=== PATIENT | female | born 1980 | race Two or more races ===

== ENCOUNTER 2025-01-14 23:48 | Inpatient (IN) | payer OTHER ==
[~2025-01-14] VITALS: Ht 154.9 cm; Wt 65.0 kg
--- NOTE | 2025-01-15 00:25 | ED.PDOC ---
SOB-HPI HPI Comments This is a 44-year-old female, with a Hx of CKD and HTN, who presents to the ED with a chief complaint of SOB with associated swelling of face and swelling to bilateral lower extremities as of today. Patient reports attending dialysis regularly, Sunday, , and Sunday, for her HTN and Kidney Disease. Patient states she was told by her dialysis physician that the swelling is caused by her body maintaining fluids. Patient has no further complaints at this time and otherwise denies further associated symptoms of abdominal pain, chest pain, palpitations, cough, hemoptysis, fever, or chills. REVIEW OF SYSTEMS: General: No fever, no chills, or fatigue HEENT: No sore throat, no earache, no congestion, no neck pain. Positive swelling of face Cardiac: No chest pain. No palpitations. Lungs: Positive shortness of breath, no cough. GI: No nausea, no vomiting, no diarrhea, no constipation, no abdominal pain : No dysuria, frequency, or urgency. No hematuria. Musculoskeletal: No joint pain , no joint swelling, positive bilateral lower extremity edema Skin: No rash, no itching. Neuro: No headache, no dizziness, no weakness Physical EXAM: General: Awake, alert and oriented. No acute distress. Skin: Skin in warm, dry and intact. Appropriate color for ethnicity. HEENT: The head is normocephalic and atraumatic. Conjunctivae are clear without exudates or hemorrhage. Sclera is non-icteric. EOM are intact. No signs of nystagmus. Eyelids are normal in appearance without swelling or lesions. Oral mucosa is pink and moist Neck: Positive JVD. The neck is supple with normal range of motion. Cardiac: Heart rate and rhythm are normal. No murmurs, gallops, or rubs are auscultated. Respiratory: No signs of respiratory distress. Positive rales bilaterally Abdominal: Abdomen is soft, non-tender without distention. Bowel sounds are present and normoactive in all four quadrants. Extremities: Soft non-tender, 1+ pitting edema of the lower extremities bilaterally. Neurological: The patient is awake, alert and oriented to person, place, and ti me with normal speech. Speech is clear. There is no facial asymmetry. Psychiatric: Appropriate mood and affect. Good judgement and insight Chief Complaint: Shortness of Breath Time Seen by MD: 00:10 Reviewed notes: Medications, Allergies Information Source: Patient Mode of Arrival: Ambulatory Severity: Moderate Timing: Hours Duration: Since onset History of: Other (CKD and HTN) Prehospital treatment: None Associated Signs and Symptoms: None Past Medical History PAST MEDICAL HISTORY: Anemia, DM, HTN Past Medical History (Other): CKD Surgical History: Denies all surgeries RN LICENSED PRACTICAL History: No Pertinent RN LICENSED PRACTICAL History Family History Family History: Reviewed,noncontributory to illness, No family hx of Cancer, No family hx of DM, No family hx of Heart katina, No family hx of HTN, No family hx ofKidney katina, No family hx of Liver katina, No family hx of Lung katina, No family hx of Stroke Social History Smoker: Non-Smoker Alcohol: Denies ETOH Use Drugs: Denies Drug Use Lives In: Home Was a procedure done? Was a procedure done?: No Differential Dx Differential Diagnosis: Anxiety, Asthma, Bronchitis, Sinusitis, Allergic Rhini tis, Pharyngitis X-Ray, Labs, Meds, VS Vital Signs Date Time Temp Pulse Resp B/P (MAP) Pulse Ox O2 Delivery O2 Flow Rate FiO2 01/14/25 23:48 97.7 105 17 157/81 95 97.7 Lab Test 01/15/25 00:30 Range/Units White Blood Count 7.1 4.4-10.8 10^3/uL Red Blood Count 3.72 L 4.0-5.20 10^6/uL Hemoglobin 11.5 L 12.2-16.2 g/dL Hematocrit 35.3 L 36.0-46.0 % Mean Corpuscular Volume 94.8 80.0-100.0 fL Mean Corpuscular Hemoglobin 30.9 28.0-32.0 pg Mean Corpuscular Hemoglobin Concent 32.6 32.0-36.0 g/dL Red Cell Distribution Width 16.4 H 11.8-14.3 % Platelet Count 180 140-450 10^3/uL Mean Platelet Volume 8.1 6.9-10.8 fL Neutrophils (%) (Auto) 75.9 37.0-80.0 % Lymphocytes (%) (Auto) 9.4 L 10.0-50.0 % Monocytes (%) (Auto) 10.9 0.0-12.0 % Eosinophils (%) (Auto) 2.7 0.0-7.0 % Basophils (%) (Auto) 1.1 0.0-2.0 % Neutrophils # (Auto) 5.4 1.6-8.6 10 ^3/uL Lymphocytes # (Auto) 0.7 0.4-5.4 10 ^3/uL Monocytes # (Auto) 0.8 0-1.3 10 ^3/uL Eosinophils # (Auto) 0.2 0-0.8 10 ^3/uL Basophils # (Auto) 0.1 0-0.2 10 ^3/uL Nucleated Red Blood Cells 0.0 % Sodium Level 138 136-145 mmol/L Potassium Level 4.3 3.5-5.1 mmol/L Chloride Level 98 98-107 mmol/L Carbon Dioxide Level 26 20-31 mmol/L Anion Gap 14 5-15 Blood Urea Nitrogen 36 H 9-23 mg/dL Creatinine 7.16 H 0.550-1.02 mg/dL Glomerular Filtration Rate Calc 7 >90 mL/min BUN/Creatinine Ratio 5.0 L 10.0-20.0 Serum Glucose 116 H 74-106 mg/dL Calcium Level 7.5 L 8.7-10.4 mg/dL Troponin I High Sensitivity 26 </=34 ng/L Parathyroid Hormone (Intact) 1607.4 H 18.4-80.1 pg/mL [place] [id number] Ph: [phone] DIAGNOSTIC IMAGING Diagnostic Imaging Report : [id number] Signed PATIENT: YENNI SLULIVAN ACCT: [id number] UNIT: [id number] : 1980 LOC: ER ROOM / BED: / AGE / SEX: 44 / F ADM STATUS: REG ER SERVICE 0014 ORDERING PHYSICIAN: ALLY IRENE MD PROCEDURE(s): CXR2 - CHEST TWO VIEWS ROUTINE REASON: sob, jvd, LE edema ORDER NUMBER(s): [id number], ACCESSION NUMBER(s): [id number] CHEST RADIOGRAPH Indication: sob, jvd, LE edema Technique: Frontal and lateral view of the chest was obtained Comparison: None FINDINGS: Lines and Tubes: None Lungs: Clear Pleura: Small right pleural effusion. No pneumothorax. Cardiomediastinal contours: Cardiomegaly. Atherosclerotic vascular calcifications. Bones: Unremarkable IMPRESSION: 1. Cardiomegaly and small right pleural effusion. Images Reviewed?: Images reviewed and evaluated by me Time of 1ST Reevaluation: 00:39 Reevaluation 1ST: Unchanged Patient Education/Counseling: Diagnosis, Treatment, Need For Follow Up Family Education/Counseling: No Family Present Medical Screening: No EMC Exist At This Time SEPSIS Sepsis Screen Date sepsis recognized/suspect: Jan 14, 2025 Time Sepsis recognized/suspect: 2347 Recent Procedure: No On Antibiotic Therapy: No Respiratory Rate >20: No Heart Rate >90: No Temp<36 C (96.8 F) or >38.3 C: No SBP <90 or MAP <65 mmHG: No New Acute Mental Status Change: No Is the patient on CPAP, BIPAP,: No Physician Orders Chest Two Views Routine (01/15/25 00:14) Electrocardigram (01/15/25 00:14) Vital Signs Date Time Temp Pulse Resp B/P (MAP) Pulse Ox O2 Delivery O2 Flow Rate FiO2 01/14/25 23:48 97.7 105 17 157/81 95 97.7 Laboratory Tests Test 01/15/25 00:30 White Blood Count 7.1 10^3/uL (4.4-10.8) Departure 1 Departure Time of Disposition: 01:33 Impression: Primary Impression: Pleural effusion, right Additional Impressions: Shortness of breath Hypertensive CKD, ESRD on dialysis Disposition: ADMITTED INPATIENT Condition: Stable Comments Patient admitted to hospitalist service for further treatment, evaluation and monitoring. Critical Care Note Critical Care Time?: No Stability Stability form required: No Heart Score Heart Score: Heart Score Response (Comments) Value History N/A 0 EKG N/A 0 Age N/A 0 Risk Factors N/A 0 Troponin N/A 0 Total 0 I personally scribed for ALLY IRENE MD ([employer]) on 01/15/25 at 00:24. Electronically submitted by Viv Roland ([employer]). I personally scribed for ALLY IRENE MD ([email or web address]) on 01/15/25 at 00:57. El ectronically submitted by Viv Roland ([employer]). ALLY IRENE MD Jan 15, 2025 00:24
[2025-01-15 00:45] LABS: Hematocrit 35.3 % (36.0-46.0); Hemoglobin 11.5 g/dL (12.2-16.2); Mean Corpuscular Hemoglobin 30.9 pg (28.0-32.0); Mean Corpuscular Volume 94.8 fL (80.0-100.0); Nucleated Red Blood Cells % 0.0 %
[2025-01-15 00:48] LABS: Chloride 98 mmol/L (98-107); Potassium 4.3 mmol/L (3.5-5.1); Sodium 138 mmol/L (136-145)
[2025-01-15 00:49] LABS: Anion Gap 14 (5-15); Carbon Dioxide 26 mmol/L (20-31)
--- NOTE | 2025-01-15 00:52 | DVH ---
CHEST RADIOGRAPH Indication: sob, jvd, LE edema Technique: Frontal and lateral view of the chest was obtained Comparison: None FINDINGS: Lines and Tubes: None Lungs: Clear Pleura: Small right pleural effusion. No pneumothorax. Cardiomediastinal contours: Cardiomegaly. Atherosclerotic vascular calcifications. Bones: Unremarkable IMPRESSION: 1. Cardiomegaly and small right pleural effusion.
[2025-01-15 00:53] LABS: Calcium 7.5 mg/dL (8.7-10.4)
[2025-01-15 00:54] LABS: BUN/Creatinine Ratio 5.0 (10.0-20.0)
[2025-01-15 00:58] LABS: Blood Urea Nitrogen 36 mg/dL (9-23); Glucose 116 mg/dL (74-106)
--- NOTE | 2025-01-15 04:47 | DVHHPRES ---
History of Present Illness Resident Creating Document: STANLEY OROZCO RESIDENT History of Present Illness History of Present Illness (HPI): Callie Mijares is a 44-year-old female with a known past medical history of chronic kidney disease (CKD) and hypertension. She presents with complaints of facial and pedal swelling that have persisted for approximately six months. In addition to the swelling, she reports experiencing shortness of breath and abdominal bloating during the same timeframe. The patient is currently undergoing hemodialysis three times a weekspecifically on Tuesdays, , and Saturdaysthrough the [facility]. She mentions that her poll watcher has recommended she follow up with her primary care provider (PCP) regarding a potential parathyroidectomy. Past Medical History (PMH): CKD, hypertension Past Surgical History (PSH): Denies any past surgical history Family history (FH): Family history of CKD in father EtOH: Denies alcohol use Smoking /Vaping: Denies smoking Recreational Drugs: Denies recreational drug use Residence: Lives with family Home Medications: Amlodipine, pantoprazole, calcium acetate, ferric citrate, cinacalcet, metoclopramide Allergies: No known allergies PCP: Dr. Draper Specialist relevant to admission: Nephrology, [facility] Review of Systems Review of Systems General: patient denies fever, fatigue, weakenss, sweating, any recent changes in appetite and weight HEENT: Complains of swelling in the face Cardiovascular: Denies chest pain, palpitations, dyspnea on exertion, orthopnea, or claudication. Respiratory: No cough, and wheezing. Gastrointestinal: Complains of abdominal bloating. Genitourinary: No dysuria, hematuria, discharge, frequency, urgency, nocturia, incontinence, and urinary retention. Endocrine: No heat or cold intolerance, polydipsia, polyuria, and polyphagia. Neurological: No dizziness, extremity weakness and numbness, tremors, gait disturbance, seizures, and memory impairment. Psychiatric: Denies depression, anxiety,or insomnia. Musculoskeletal: Complains of bilateral foot swelling. Skin: No rashes, itching, skin lesion, changes in hair, nail, skin texture and breast. Hematologic/Lymphatic: Denies easy bruising, bleeding tendencies, or lymph node enlargement. Allergies: Coded Allergies: NO KNOWN ALLERGIES (Unverified , 01/15/25) Medications Current Medications Medications Dose Ordered Sig/Willis Route Start Time Stop Time Status Last Admin Dose Admin Calcium Acetate 667 mg DAILY PO 01/15/25 10:00 Pantoprazole Sodium 20 mg DAILY PO 01/15/25 10:00 Exam Vital Signs Vital Signs Date Time Temp Pulse Resp B/P (MAP) Pulse Ox O2 Delivery O2 Flow Rate FiO2 01/14/25 23:48 97.7 105 17 157/81 95 97.7 Exam General Appearance: Alert, Oriented X3, Cooperative, No acute distress HEENT: Nonpitting facial edema Respiratory: Clear to auscultation, Normal air movement Cardiovascular: Regular rate, Normal S1, Normal S2, No murmurs, no chest wall tenderness Abdominal: Normal bowel sounds, No tenderness, No hepatospenomegaly, distended abdomen Extremities: Bilateral pitting pedal edema present Skin: No rashes, No breakdown, No significant lesion Neuro: Normal gait, Normal speech, Strength at 5/5 X4 ext, Normal tone, Sensation intact, Cranial nerves 3-12 NL, Reflexes 2+ Psych/Mental Status: Mental status NL, Mood NL Labs/Xrays Labs Test 01/15/25 00:30 Range/Units White Blood Count 7.1 4.4-10.8 10^3/uL Red Blood Count 3.72 L 4.0-5.20 10^6/uL Hemoglobin 11.5 L 12.2-16.2 g/dL Hematocrit 35.3 L 36.0-46.0 % Mean Corpuscular Volume 94.8 80.0-100.0 fL Mean Corpuscular Hemoglobin 30.9 28.0-32.0 pg Mean Corpuscular Hemoglobin Concent 32.6 32.0-36.0 g/dL Red Cell Distribution Width 16.4 H 11.8-14.3 % Platelet Count 180 140-450 10^3/uL Mean Platelet Volume 8.1 6.9-10.8 fL Neutrophils (%) (Auto) 75.9 37.0-80.0 % Lymphocytes (%) (Auto) 9.4 L 10.0-50.0 % Monocytes (%) (Auto) 10.9 0.0-12.0 % Eosinophils (%) (Auto) 2.7 0.0-7.0 % Basophils (%) (Auto) 1.1 0.0-2.0 % Neutrophils # (Auto) 5.4 1.6-8.6 10 ^3/uL Lymphocytes # (Auto) 0.7 0.4-5.4 10 ^3/uL Monocytes # (Auto) 0.8 0-1.3 10 ^3/uL Eosinophils # (Auto) 0.2 0-0.8 10 ^3/uL Basophils # (Auto) 0.1 0-0.2 10 ^3/uL Nucleated Red Blood Cells 0.0 % Sodium Level 138 136-145 mmol/L Potassium Level 4.3 3.5-5.1 mmol/L Chloride Level 98 98-107 mmol/L Carbon Dioxide Level 26 20-31 mmol/L Anion Gap 14 5-15 Blood Urea Nitrogen 36 H 9-23 mg/dL Creatinine 7.16 H 0.550-1.02 mg/dL Glomerular Filtration Rate Calc 7 >90 mL/min BUN/Creatinine Ratio 5.0 L 10.0-20.0 Serum Glucose 116 H 74-106 mg/dL Calcium Level 7.5 L 8.7-10.4 mg/dL Troponin I High Sensitivity 26 </=34 ng/L SEPSIS Sepsis Screen Date sepsis recognized/suspect: Jan 14, 2025 Time Sepsis recognized/suspect: 2347 Recent Procedure: No On Antibiotic Therapy: No Respiratory Rate >20: No Heart Rate >90: No Temp<36 C (96.8 F) or >38.3 C: No SBP <90 or MAP <65 mmHG: No New Acute Mental Status Change: No Is the patient on CPAP, BIPAP,: No Physician Orders Chest Two Views Routine (01/15/25 00:14) Electrocardigram (01/15/25 00:14) Admit (01/15/25 04:00) Allergies (01/15/25 04:00) Code Status (01/15/25 04:00) Renal Standard(2gna,3gk,Lopho) (01/15/25 Breakfast) Complete Blood Count (01/15/25 04:00) Comprehensive Metabolic Panel (01/15/25 04:00) Condition: Fair (01/15/25 04:00) *Dr. Lucila Sharpe -Boubacar Craven (01/15/25 04:04) Calcium Acetate Capsule (Phoslo Capsule) (01/15/25 10:00) Pantoprazole Tablet (Protonix Tablet) (01/15/25 10:00) Vital Signs Date Time Temp Pulse Resp B/P (MAP) Pulse Ox O2 Delivery O2 Flow Rate FiO2 01/14/25 23:48 97.7 105 17 157/81 95 97.7 Laboratory Tests Test 01/15/25 00:30 White Blood Count 7.1 10^3/uL (4.4-10.8) Assessment/Plan Assessment/Plan Assessment and plan # Anasarca, due to end-stage renal disease - IV Lasix - Echocardiogram - Liver ultrasound to check for ascites # ESRD on hemodialysis, likely due to hypertensive nephropathy - resume home meds - Nephrology consulted - Sunday - Patient makes urine around 50 to 100 ml - Renal diet # Right-sided pleural effusion - IV Lasix - Chest ultrasound - ECHO #Normocytic anemia - Follow CBC #Essential hypertension - Started on Nifedipine 30mg #GERD - Continue Protonix PUD prophylaxis: protonix 20mg DVT prophylaxis: Heparin Barriers to discharge: Medical diagnosis and management in progress. Patient lives with family. Independent for ADL. PCP: Dr. Draper Specialist Relevant To Admission: Nephrology, [facility] Case discussed with Dr. Bolanos. Code Status: Full Code. Complex patient care discussion needed. Spend total 37 minutes for bedside assessment, case discussion and management. Plan discussed with: Patient My Orders Orders - STANLEY OROZCO RESIDENT Procedure Category Date Status Time Admit ADMIT 01/15/25 Transmitted 04:00 Allergies KLAUDIA 01/15/25 In Process 04:00 Code Status CODE 01/15/25 Transmitted 04:00 Renal DIET 01/15/25 Transmitted Standard(2gna,3gk,Lopho) Breakfast Complete Blood Count LAB 01/15/25 Logged 04:00 Comprehensive LAB 01/15/25 Logged Metabolic Panel 04:00 Condition: Fair KLAUDIA 01/15/25 In Process 04:00 *Dr. Lucila Sharpe -Da CONS 01/15/25 Transmitted Merissa 04:04 Calcium Acetate PHA 01/15/25 In Process Capsule (Phoslo 10:00 Pantoprazole Tablet PHA 01/15/25 In Process (Protonix Tablet) 10:00 Date of Service: Jan 15, 2025 Billing Provider: RAFAEL BOLANOS MD Common Visit Codes: 41690-QHSMUMX INP/OBS CARE (HIGH) Secondary Visit Codes: 98062-[id number] CARE PLAN 30 MINUTES STANLEY OROZCO RESIDENT Jan 15, 2025 04:47
[2025-01-15 05:22] LABS: Hematocrit 36.9 % (36.0-46.0); Hemoglobin 12.1 g/dL (12.2-16.2); Mean Corpuscular Hemoglobin 31.7 pg (28.0-32.0); Mean Corpuscular Volume 96.4 fL (80.0-100.0); Nucleated Red Blood Cells % 0.0 %
[2025-01-15 05:35] LABS: Alanine Aminotransferase < 9 U/L (7-40); Albumin 4.2 g/dL (3.2-4.8); Alkaline Phosphatase 260 U/L (46-116); Anion Gap 14 (5-15); BUN/Creatinine Ratio 4.5 (10.0-20.0); Bilirubin, Total 1.0 mg/dL (0.2-1.0); Blood Urea Nitrogen 35 mg/dL (9-23); Calcium 7.9 mg/dL (8.7-10.4); Carbon Dioxide 25 mmol/L (20-31); Chloride 99 mmol/L (98-107); Glucose 96 mg/dL (74-106); Potassium 5.0 mmol/L (3.5-5.1); Sodium 138 mmol/L (136-145); Total Protein 8.0 g/dL (5.7-8.2)
[2025-01-15] MEDS: FUROSEMIDE 40 MG/4 ML VIAL IV ONE ×3 (06:17→11:56)
[2025-01-15 08:52] LABS: INR 1.11 (0.9-1.15); Partial Thromboplastin Time 27.8 SEC (24.5-34.5); Prothrombin Time 11.6 sec (9.3-11.8)
[2025-01-15 09:43] VITALS: BP 169/84; PULSE 94; RESP 18; TEMP 97.5; O2SAT 95
--- NOTE | 2025-01-15 09:45 | DVH ---
Bilateral Chest Sonogram Clinical history: pleural effusion Technique: Limited sonographic evaluation of the right and left chest was performed. Findings/Impression: Trace right pleural effusion. No left pleural effusion.
--- NOTE | 2025-01-15 10:23 | DVH ---
INDICATION: ascites,SWELLING,CKD TECHNIQUE: Multiple real-time sonographic images of the abdomen were obtained. COMPARISON: None FINDINGS: The liver is heterogeneous in echogenicity. The liver measures 19cm. No intrahepatic bilia ry ductal dilatation is noted. The gallbladder wall measures 0.3 cm and is unremarkable. No gallstones or sludge is seen. The commo n duct measures 0.6 cm and is unremarkable. No pericholecystic fluid is noted. 4 mm gallbladder poly p. The right kidney measures 18cm. No hydronephrosis. The left kidney measures 11cm. No hydronephrosis . Innumerable bilateral renal cysts are noted measuring up to 7 cm in the right kidney and 5 cm in th e left kidney. The spleen measures 12cm, within normal limits. The echogenicity is within normal limits. The pancreas is not well visualized due to obscuration from bowel gas. The visualized portions of the IVC and aorta are grossly unremarkable. IMPRESSION: Innumerable renal cysts measuring up to 7 cm in the right kidney and 5 cm in the left kidney. Represe nt polycystic kidney disease Small volume ascites 4 mm gallbladder polyp. Trace bilateral pleural effusions
[2025-01-15] MEDS: CALCIUM ACETATE 667 MG CAP PO SCH (11:53)
[2025-01-15] MEDS: PANTOPRAZOLE 40 MG TAB PO SCH (11:54)
[2025-01-15] MEDS: HEPARIN SODIUM (PORCINE) 5000 UNITS/ML 1ML VIAL SC SCH (11:55)
--- NOTE | 2025-01-15 15:09 | DVHPN2 ---
Subjective Patient has abdominal bloating. Reviewed: Care Plan, H&P, Labs, Medications Changes from previous H/P or p: No Changes General: Per HPI Objective Vitals Vital Signs Date Time Temp Pulse Resp B/P (MAP) Pulse Ox O2 Delivery O2 Flow Rate FiO2 01/15/25 11:56 158/80 01/15/25 11:21 98.4 90 16 94 98.4 01/15/25 09:43 Room Air 0.0 01/15/25 09:43 21 General Appearance: Alert, Oriented X3, Cooperative, No acute distress, mild distress HEENT: Atraumatic, PERRLA Cardiovascular: Normal S1, Normal S2 Skin: Dry, Intact Psych/Mental Status: Mental status NL, Mood NL Medications Current Medications Medications Dose Ordered Sig/Willis Route Start Time Stop Time Status Last Admin Dose Admin Calcium Acetate 667 mg DAILY PO 01/15/25 10:00 01/15/25 11:53 667 MG Pantoprazole Sodium 20 mg DAILY PO 01/15/25 10:00 01/15/25 11:54 20 MG Nifedipine 30 mg DAILY PO 01/15/25 10:00 01/15/25 11:54 30 MG Heparin Sodium (Porcine) 5,000 units Q12HR SC 01/15/25 10:00 01/15/25 11:55 5,000 UNITS Furosemide 60 mg BIDD IV 01/15/25 18:00 Albuterol 2.5 mg Q4HPRN PRN NEB 01/15/25 08:15 Ipratropium Jennings 0.5 mg Q4HPRN PRN NEB 01/15/25 08:15 Laboratory Results Laboratory Tests 01/15/25 04:53 Chemistry Test 01/15/25 00:30 01/15/25 04:53 Calcium Level 7.5 mg/dL (8.7-10.4) L 7.9 mg/dL (8.7-10.4) L Albumin 4.2 g/dL (3.2-4.8) Total Protein 8.0 g/dL (5.7-8.2) Coagulation Test 01/15/25 04:53 Prothrombin Time 11.6 sec (9.3-11.8) Prothrombin Time INR 1.11 (0.9-1.15) Activated Partial Thromboplast Time 27.8 SEC (24.5-34.5) Cardiac Markers Test 01/15/25 04:53 B-Type Natriuretic Peptide 1059.28 pg/mL (0-100) LFT Test 01/15/25 04:53 Alanine Aminotransferase (ALT) < 9 U/L (7-40) Alkaline Phosphatase 260 U/L (46-116) H Aspartate Amino Transferase (AST) 15 U/L (13-40) Total Bilirubin 1.0 mg/dL (0.2-1.0) Labs and/or images reviewed: Labs reviewed by me, Image(s) reviewed by me Assessment/Plan Assessment/Plan Impression: -abdominal pain -polycystic kidney disease -end-stage renal disease -small pleural effusion -questionable parathyroid mass -accelerated hypertension Plan: -CT scan of the abdomen and pelvis -nephrology consultation for hemodialysis -parathyroid scan -check PTH -continue IV diuresis -repeat labs in a.m. Total time spent with patient discussing and formulating plan of care: 35 minutes. This medical document was created using an electronic medical record system with [employer] dictation system. Although this document has been carefully reviewed, there may still be some phonetic and typographical errors. These areas are purely typographical due to imperfections of the software programs, and do not reflect any compromise in the patient's medical care. Plan discussed with: Patient, Other (rn) My Orders Orders - JOY DURAN NP Procedure Category Date Status Time Basic Metabolic Panel LAB 01/16/25 Verified 04:00 Ct Ab Pel Wo Con-No CT 01/15/25 Logged Oral Or Iv 14:53 Parathyroid Hormone LAB 01/15/25 Logged Intact 14:53 Parathyroid NM 01/15/25 Logged 14:53 Date of Service: Jan 15, 2025 Billing Provider: JOY DURAN NP Common Visit Codes: [id number] INP/OBS CARE(HIGH) JOY DURAN NP Jan 15, 2025 15:09
--- NOTE | 2025-01-15 15:55 | DVH ---
Exam: CT CT AB PEL WO CON-NO ORAL OR IV History: abdominal pain and bloating Comparison Study: CT ABDOMEN PELVIS WITHOUT on DOS: 11/11/24 TECHNIQUE: Multidetector CT of the abdomen and pelvis was performed from lung bases to pubic symphysi s. Imaging was performed without IV contrast. Axial, coronal, and sagittal multiplanar reformats were obtained from the axial data set by the technologist. RADIATION DOSE: DLP 499.61 mGy.cm; CTDI vol 9.51 mGy. Findings: Lungs: Small right pleural effusion. Heart: No cardiomegaly or pericardial effusion. Liver: Unremarkable. Gallbladder: Unremarkable. Spleen: Unremarkable Pancreas: Unremarkable Adrenals: Unremarkable Kidneys: Numerous bilateral renal cysts. GI tract: Unremarkable : The urinary bladder is decompressed. Vasculature: Moderate aortoiliac atherosclerosis. Lymphadenopathy: Absent Peritoneum: Mild volume ascites. Musculoskeletal: Unremarkable Soft tissues: Mild anasarca. Small fluid containing periumbilical hernia. Impression: 1. No acute abdominopelvic abnormalities. 2. Polycystic kidneys. 3. Mild volume ascites and anasarca.
--- NOTE | 2025-01-15 16:36 | DVHINCON2 ---
DATE OF CONSULTATION: 01/15/2025 CONSULTING PHYSICIAN: Dr. Weathers. REASON FOR CONSULTATION: Management of dialysis. 3 HISTORY OF PRESENT ILLNESS: The patient is a 44-year-old female who is one of our chronic dialysis patients who has a history of longstanding hypertension, chronic kidney disease, who presented to the hospital complaining of edema of the lower extremities. This has been getting worse for the last several weeks. She also developed some abdominal bloating and shortness of breath. She has been admitted for further management. The patient is also to undergo dialysis therapy. She normally undergoes dialysis on Sunday, , and Sunday. She says she has not missed treatments. MEDICATIONS: Include amlodipine, pantoprazole, calcium acetate, iron sulfate, Cinacalcet, and metoclopramide. SOCIAL HISTORY: She denies smoking cigarettes, drinking alcohol, or using illicit drugs. FAMILY HISTORY: Significant for hypertension and chronic kidney disease. PHYSICAL EXAMINATION: VITAL SIGNS: Blood pressure is 150/80, heart rate 90, respirations 16, and temperature 98. GENERAL: This is an adult female who appears to be chronically ill, but in no acute distress. HEENT: Exam is unremarkable. There are no oral abnormalities. Ears, nose, and throat are normal. NECK: No jugular venous distention. LUNGS: The lungs are clear to auscultation. CARDIOVASCULAR: Regular rate with an S4 gallop. ABDOMEN: Soft, nontender. No organomegaly. No ascites. EXTREMITIES: Show no clubbing and no cyanosis. No edema. LABORATORY FINDINGS: Her hemoglobin is 12.1. Sodium 138, potassium 5, bicarbonate 25, BUN 35, creatinine 7.7. ASSESSMENT AND PLAN: * End-stage renal disease with no electrolyte imbalances. * Uncontrolled hypertension. * Anemia of renal disease. Hemoglobin is in target range. * Lower extremity edema. The patient will be scheduled to have dialysis tomorrow. We will try to remove 3 liters of fluid. Should be on a low sodium restriction. I would recommend to get a 2D echocardiogram and consultation. Continue home medications for blood pressure. Thank you for the consult. MD KELSIE Weber/MAURILIO TID: [id number] RECEIPT: [id number]
[2025-01-15 17:44] VITALS: BP 158/78; PULSE 91; RESP 19; TEMP 98.1; O2SAT 88
[2025-01-15] MEDS: FUROSEMIDE 100 MG/10ML VIAL IV SCH (17:45)
[2025-01-15 19:20] VITALS: O2SAT 98
[2025-01-15] MEDS ORDERED: FERR1TAB17 PO (19:24)
[2025-01-15] MEDS ORDERED: CALC667C PO (19:24)
[2025-01-15] MEDS ORDERED: PANT40T PO (19:24)
[2025-01-15] MEDS ORDERED: METO10TA3 PO (19:24)
[2025-01-15] MEDS ORDERED: CINA60TA10 PO (19:24)
[2025-01-15] MEDS ORDERED: AMLO1TAB22 PO (19:24)
[2025-01-15 20:00] VITALS: PULSE 86; RESP 20; O2SAT 97
[2025-01-15 21:08] VITALS: BP 140/73; PULSE 86; RESP 20; TEMP 97.6; O2SAT 97
[2025-01-15 23:35] LABS: Urine Protein, UAD 2+ (Negative)
[2025-01-16] VITALS (9 sets, daily range): BP systolic 132–151; BP diastolic 70–82; PULSE 81–97; RESP 16–20; TEMP 97.5–98.6; O2SAT 91–100
[2025-01-16] MEDS: SODIUM CHL 0.9% 1000 ML BAG XX ONE (07:00)
[2025-01-16 07:16] LABS: Anion Gap 15 (5-15); Carbon Dioxide 24 mmol/L (20-31); Potassium 4.9 mmol/L (3.5-5.1); Sodium 136 mmol/L (136-145)
[2025-01-16 07:18] LABS: Calcium 8.3 mg/dL (8.7-10.4); Chloride 97 mmol/L (98-107)
[2025-01-16 07:22] LABS: BUN/Creatinine Ratio 6.4 (10.0-20.0); Glucose 90 mg/dL (74-106)
[2025-01-16 07:24] LABS: Blood Urea Nitrogen 59 mg/dL (9-23)
--- NOTE | 2025-01-16 13:12 | DVHPN2 ---
Progress Note - Dictate Date Seen: Jan 16, 2025 Has the PT tested + for MRSA If YES, has PT been informed?: No Medical Necessity Reason Pt with a Central, PICC or Fol: No Subjective No new complaints vital signs Vital Sign Date Time Temp Pulse Resp B/P (MAP) Pulse Ox O2 Delivery O2 Flow Rate FiO2 01/16/25 09:00 97.7 85 16 147/71 (96) 95 97.7 01/16/25 08:15 Room Air* 0 21 Total Intake and Output 01/15/25 01/15/25 01/16/25 15:00 23:00 07:00 Intake Total 1100 ml Output Total 250 ml Balance 850 ml medications Current Medications Medications Dose Ordered Sig/Willis Route Start Time Stop Time Status Last Admin Dose Admin Calcium Acetate 667 mg DAILY PO 01/15/25 10:00 01/16/25 09:30 667 MG Pantoprazole Sodium 20 mg DAILY PO 01/15/25 10:00 01/16/25 09:31 20 MG Nifedipine 30 mg DAILY PO 01/15/25 10:00 01/15/25 11:54 30 MG Heparin Sodium (Porcine) 5,000 units Q12HR SC 01/15/25 10:00 01/16/25 09:33 5,000 UNITS Furosemide 60 mg BIDD IV 01/15/25 18:00 01/16/25 05:32 60 MG Albuterol 2.5 mg Q4HPRN PRN NEB 01/15/25 08:15 Ipratropium [place] 0.5 mg Q4HPRN PRN NEB 01/15/25 08:15 objective GENERAL: This is an adult female who appears to be chronically ill, but in no acute distress. HEENT: Exam is unremarkable. There are no oral abnormalities. Ears, nose, and throat are normal. NECK: No jugular venous distention. LUNGS: The lungs are clear to auscultation. CARDIOVASCULAR: Regular rate with an S4 gallop. ABDOMEN: Soft, nontender. No organomegaly. No ascites. EXTREMITIES: Show no clubbing and no cyanosis. No edema. laboratory and microbiology Laboratory Tests 01/16/25 06:36 01/15/25 04:53 Test 01/16/25 06:36 Range/Units Serum Glucose 90 74-106 mg/dL Assessment/Plan ASSESSMENT AND PLAN: * End-stage renal disease with no electrolyte imbalances. * Hypertension. * Anemia of renal disease. Hemoglobin is in target range. * Lower extremity edema. * Abdominal pain / ADPKD Continue HD on TTS schedule Plan discussed with: Patient MAEVE RUIZ MD Jan 16, 2025 13:12
--- NOTE | 2025-01-16 14:26 | DVHPN2 ---
Subjective Patient has abdominal bloating. Reviewed: Care Plan, H&P, Labs, Medications Changes from previous H/P or p: No Changes General: Per HPI Objective Vitals Vital Signs Date Time Temp Pulse Resp B/P (MAP) Pulse Ox O2 Delivery O2 Flow Rate FiO2 01/16/25 13:00 97.5 82 20 147/77 (100) 95 97.5 01/16/25 08:15 Room Air* 0 21 Intake/Output Intake and Output 01/16/25 07:00 Intake Total 1100 ml Output Total 250 ml Balance 850 ml Intake Oral 1100 ml Output Urine Total 250 ml # Bowel Movements 2 General Appearance: Alert, Oriented X3, Cooperative, No acute distress, mild distress HEENT: Atraumatic, PERRLA Cardiovascular: Normal S1, Normal S2 Skin: Dry, Intact Psych/Mental Status: Mental status NL, Mood NL Medications Current Medications Medications Dose Ordered Sig/Willis Route Start Time Stop Time Status Last Admin Dose Admin Calcium Acetate 667 mg DAILY PO 01/15/25 10:00 01/16/25 09:30 667 MG Pantoprazole Sodium 20 mg DAILY PO 01/15/25 10:00 01/16/25 09:31 20 MG Nifedipine 30 mg DAILY PO 01/15/25 10:00 01/15/25 11:54 30 MG Heparin Sodium (Porcine) 5,000 units Q12HR SC 01/15/25 10:00 01/16/25 09:33 5,000 UNITS Furosemide 60 mg BIDD IV 01/15/25 18:00 01/16/25 05:32 60 MG Albuterol 2.5 mg Q4HPRN PRN NEB 01/15/25 08:15 Ipratropium [place] 0.5 mg Q4HPRN PRN NEB 01/15/25 08:15 Ceftriaxone Sodium 50 ml @ 100 mls/hr DAILY@09 IV 01/17/25 09:00 UNV Laboratory Results Laboratory Tests 01/15/25 04:53 01/16/25 06:36 Chemistry Test 01/16/25 06:36 Calcium Level 8.3 mg/dL (8.7-10.4) L Urinalysis Test 01/15/25 23:00 Urine Color Light-yellow (Yellow) Urine Clarity Turbid (Clear) H Urine pH 8.0 (5.0-9.0) Urine Specific [place] 1.008 (1.001-1.035) Urine Protein 2+ (Negative) H Urine Ketones Negative (Negative) Urine Blood 1+ /uL (Negative) H Urine Nitrite Negative (Negative) Urine Bilirubin Negative (Negative) Urine Urobilinogen Normal mg/dL (Negative) Urine Leukocyte Esterase 2+ /uL (Negative) Urine RBC 7 /hpf (0 - 4) Urine Microscopic WBC 10 /HPF (0-5) H Urine Squamous Epithelial Cells Mod /hpf (<5) Urine Bacteria Few /hpf (None Seen) H Urine Glucose 1+ mg/dL (Normal) H Labs and/or images reviewed: Labs reviewed by me, Image(s) reviewed by me Assessment/Plan Assessment/Plan Impression: -abdominal pain -polycystic kidney disease -end-stage renal disease -small pleural effusion -questionable parathyroid mass -accelerated hypertension Plan: -CT scan of the abdomen and pelvis: Unremarkable -PTH 1607 -nephrology consultation for hemodialysis: Receiving HD -parathyroid scan: Pending -continue IV diuresis -repeat labs in a.m. Total time spent with patient discussing and formulating plan of care: 35 minutes. This medical document was created using an electronic medical record system with [employer] dictation system. Although this document has been carefully reviewed, there may still be some phonetic and typographical errors. These areas are purely typographical due to imperfections of the software programs, and do not reflect any compromise in the patient's medical care. Plan discussed with: Patient, Other (RN) My Orders Orders - JOY DURAN NP Procedure Category Date Status Time Ct Ab Pel Wo Con-No CT 01/15/25 Resulted Oral Or Iv 14:53 Parathyroid NM 01/16/25 Logged 08:00 Ceftriaxone 1gm/50ml PHA 01/17/25 Logged (Rocephin) 09:00 Basic Metabolic Panel LAB 01/17/25 Verified 04:00 Thyroid Stimulating LAB 01/17/25 Verified Hormone 04:00 Date of Service: Jan 16, 2025 Billing Provider: JOY DURAN NP Common Visit Codes: [id number] INP/OBS CARE(HIGH) JOY DURAN NP Jan 16, 2025 14:26
--- NOTE | 2025-01-16 16:53 | DVH ---
Procedure: NM PARATHYROID Exam Date: 01/16/2025 08:36 AM. Clinical History: parathyroid mass Comparison Study: None Nuclear Medicine Parathyroid Scan. Technique: Following the intravenous injection of 20.5 mCi of the Technetium 99m Sestamibi, images of the neck w ere obtained in multiple projections , immediately and after a two hour delay. Findings: There is the expected physiologic distribution of radiopharmaceutical. There is no abnormal focus of increased uptake to suggest a parathyroid adenoma in the neck. Impression: No scintigraphic evidence for parathyroid adenoma in the neck.
--- NOTE | 2025-01-16 20:10 | DVHSR ---
APPROVED REPORT EXAM: Two-dimensional and M-mode echocardiogram with Doppler and color Doppler. Blood Pressure: 139/78 mmHg INDICATION Dyspnea RISK FACTORS Height: 5'1", Weight: 146 DIMENSIONS LVDd5.6 (3.8-5.7cm)LA (2D)4.4 (1.9-4.0cm)Aortic Root3.0 (2.0-3.7cm) LVDs4.1 (2.5-4.0cm)LA (MM) (1.9-4.0cm)Aortic Cusp Exc1.6 (1.5-2.0cm) EF (%) 51.0 (55-70%)Rt. Atrium6.0 (1.9-4.0cm)Asc. Aorta2.7 cm IVSd1.2 (0.7-1.1cm)RV (D)5.4 (1.8-2.4cm) PWd1.0 (0.7-1.1cm) Mitral Valve MitralMitral Stenosis E wave1.62m/sMV Mean GR.5mmHg A wave0.88m/sMV Peak GR.15mmHg E/A ratio1.82D MVA3.14cm2 DECEL [id number] 1/2 [id number] IVRTmsDop MVA3.88cm2 Aortic Valve Aortic ValveAortic Stenosis V10.85m/Jung Mean GR.3mmHg V21.15m/Jung Peak GR.5mmHg LVOT Diameter2.0 (1.8-2.4cm)Doppler AVA2.32cm2 Pulmonic Valve V20.80m/s Tricuspid Valve TR Velocity1.80m/s [id number] Conclusion LV EF IS 65% AND IS NORMAL MODERAELY DILATED RV AND RA MODERATE DEGREE MITRAL REGURGITATION POSTERIOR MITRAL LEAFLET AND ANNULUS IS CALCIFIED MODERATELY DILATED RV AND RA NO EFFUSION
[2025-01-16] MEDS: ALBUTEROL SULF 2.5 MG/0.5ML(0.5%) NEB SOLN NEB PRN (23:17)
[2025-01-16] MEDS: IPRATROPIUM BROM 0.5 MG/2.5ML INH SOL NEB PRN (23:17)
[2025-01-17 01:00] VITALS: BP 146/70; PULSE 95; RESP 18; TEMP 97.9; O2SAT 94
[2025-01-17 05:00] VITALS: BP 148/76; PULSE 93; RESP 18; TEMP 97.6; O2SAT 93
[2025-01-17 07:11] VITALS: O2SAT 95
[2025-01-17 07:32] LABS: Anion Gap 15 (5-15); Carbon Dioxide 27 mmol/L (20-31); Potassium 4.1 mmol/L (3.5-5.1); Sodium 138 mmol/L (136-145)
[2025-01-17 07:39] LABS: BUN/Creatinine Ratio 5.4 (10.0-20.0)
[2025-01-17 07:43] LABS: Blood Urea Nitrogen 36 mg/dL (9-23); Calcium 8.2 mg/dL (8.7-10.4); Chloride 96 mmol/L (98-107); Glucose 70 mg/dL (74-106)
[2025-01-17] MEDS ORDERED: CIPR500T4 PO (07:56)
[2025-01-17 08:54] VITALS: BP 146/70; PULSE 95; RESP 19; TEMP 97.9; O2SAT 94
[2025-01-17 09:00] VITALS: BP 149/80; PULSE 93; RESP 14; TEMP 97.4; O2SAT 91
--- NOTE | 2025-01-17 10:09 | DVHPN2 ---
Progress Note - Dictate Date Seen: Jan 17, 2025 Has the PT tested + for MRSA If YES, has PT been informed?: No Medical Necessity Reason Pt with a Central, PICC or Fol: No Subjective No new complaints vital signs Vital Sign Date Time Temp Pulse Resp B/P (MAP) Pulse Ox O2 Delivery O2 Flow Rate FiO2 01/17/25 09:00 97.4 93 14 149/80 (103) 91 97.4 01/17/25 08:00 Room Air* 0 21 Total Intake and Output 01/16/25 01/16/25 01/17/25 15:00 23:00 07:00 Intake Total 1240 ml 800 ml Output Total 150 ml Balance 1090 ml 800 ml medications Current Medications Medications Dose Ordered Sig/Willis Route Start Time Stop Time Status Last Admin Dose Admin Calcium Acetate 667 mg DAILY PO 01/15/25 10:00 01/16/25 09:30 667 MG Pantoprazole Sodium 20 mg DAILY PO 01/15/25 10:00 01/16/25 09:31 20 MG Nifedipine 30 mg DAILY PO 01/15/25 10:00 01/15/25 11:54 30 MG Heparin Sodium (Porcine) 5,000 units Q12HR SC 01/15/25 10:00 01/16/25 09:33 5,000 UNITS Furosemide 60 mg BIDD IV 01/15/25 18:00 01/17/25 06:07 60 MG Albuterol 2.5 mg Q4HPRN PRN NEB 01/15/25 08:15 01/16/25 23:17 2.5 MG Ipratropium [place] 0.5 mg Q4HPRN PRN NEB 01/15/25 08:15 01/16/25 23:17 0.5 MG Ceftriaxone Sodium 50 ml @ 100 mls/hr DAILY@09 IV 01/17/25 09:00 objective GENERAL: This is an adult female who appears to be chronically ill, but in no acute distress. HEENT: Exam is unremarkable. There are no oral abnormalities. Ears, nose, and throat are normal. NECK: No jugular venous distention. LUNGS: The lungs are clear to auscultation. CARDIOVASCULAR: Regular rate with an S4 gallop. ABDOMEN: Soft, nontender. No organomegaly. No ascites. EXTREMITIES: Show no clubbing and no cyanosis. No edema. laboratory and microbiology Laboratory Tests 01/17/25 05:56 01/15/25 04:53 Test 01/17/25 05:56 Range/Units Serum Glucose 70 L 74-106 mg/dL Assessment/Plan ASSESSMENT AND PLAN: * End-stage renal disease with no electrolyte imbalances. Had HD yesterday * Hypertension. * Anemia of renal disease. Hemoglobin is in target range. * Lower extremity edema. * Abdominal pain / ADPKD * Secondary hyperparathyroidism, this is managed at the clinic, on cinacalcet Continue HD on TTS schedule as outpatient August ms home Plan discussed with: Patient MAEVE RUIZ MD Jan 17, 2025 10:09
--- NOTE | 2025-01-17 10:43 | DVHDS2 ---
Discharge Summary Date of Admission Jan 15, 2025 at 04:00 Date of Discharge: Jan 17, 2025 Admitting Diagnosis Anasarca secondary to end-stage renal failure Labs/Diagnostic Data: Laboratory Results Test 01/17/25 05:56 01/16/25 06:36 01/15/25 23:00 01/15/25 04:53 Sodium Level 138 mmol/L (136-145) Potassium Level 4.1 mmol/L (3.5-5.1) Chloride Level 96 mmol/L (98-107) Carbon Dioxide Level 27 mmol/L (20-31) Anion Gap 15 (5-15) Blood Urea Nitrogen 36 mg/dL (9-23) Creatinine 6.70 mg/dL (0.550-1.02) Glomerular Filtration Rate Calc 7 mL/min (>90) BUN/Creatinine Ratio 5.4 (10.0-20.0) Serum Glucose 70 mg/dL (74-106) Calcium Level 8.2 mg/dL (8.7-10.4) Thyroid Stimulating Hormone (TSH) 0.80 uIU/mL (0.55-4.78) Beta HCG, Quantitative 1.4 mIU/mL (1.5-4.2) Urine Color Light-yellow (Yellow) Urine Clarity Turbid (Clear) Urine pH 8.0 (5.0-9.0) Urine Specific [place] 1.008 (1.001-1.035) Urine Protein 2+ (Negative) Urine Ketones Negative (Negative) Urine Blood 1+ /uL (Negative) Urine Nitrite Negative (Negative) Urine Bilirubin Negative (Negative) Urine Urobilinogen Normal mg/dL (Negative) Urine Leukocyte Esterase 2+ /uL (Negative) Urine RBC 7 /hpf (0 - 4) Urine Microscopic WBC 10 /HPF (0-5) Urine Squamous Epithelial Cells Mod /hpf (<5) Urine Bacteria Few /hpf (None Seen) Urine Glucose 1+ mg/dL (Normal) White Blood Count 6.3 10^3/uL (4.4-10.8) Red Blood Count 3.83 10^6/uL (4.0-5.20) Hemoglobin 12.1 g/dL (12.2-16.2) Hematocrit 36.9 % (36.0-46.0) Mean Corpuscular Volume 96.4 fL (80.0-100.0) Mean Corpuscular Hemoglobin 31.7 pg (28.0-32.0) Mean Corpuscular Hemoglobin Concent 32.9 g/dL (32.0-36.0) Red Cell Distribution Width 16.5 % (11.8-14.3) Platelet Count 186 10^3/uL (140-450) Mean Platelet Volume 8.1 fL (6.9-10.8) Neutrophils (%) (Auto) 73.1 % (37.0-80.0) Lymphocytes (%) (Auto) 11.6 % (10.0-50.0) Monocytes (%) (Auto) 10.7 % (0.0-12.0) Eosinophils (%) (Auto) 3.5 % (0.0-7.0) Basophils (%) (Auto) 1.1 % (0.0-2.0) Neutrophils # (Auto) 4.6 10 ^3/uL (1.6-8.6) Lymphocytes # (Auto) 0.7 10 ^3/uL (0.4-5.4) Monocytes # (Auto) 0.7 10 ^3/uL (0-1.3) Eosinophils # (Auto) 0.2 10 ^3/uL (0-0.8) Basophils # (Auto) 0.1 10 ^3/uL (0-0.2) Nucleated Red Blood Cells 0.0 % Prothrombin Time 11.6 sec (9.3-11.8) Prothrombin Time INR 1.11 (0.9-1.15) Activated Partial Thromboplast Time 27.8 SEC (24.5-34.5) Total Bilirubin 1.0 mg/dL (0.2-1.0) Aspartate Amino Transferase (AST) 15 U/L (13-40) Alanine Aminotransferase (ALT) < 9 U/L (7-40) Alkaline Phosphatase 260 U/L (46-116) Troponin I High Sensitivity 31 ng/L (</=34) B-Type Natriuretic Peptide 1059.28 pg/mL (0-100) Total Protein 8.0 g/dL (5.7-8.2) Albumin 4.2 g/dL (3.2-4.8) Test 01/15/25 00:30 Parathyroid Hormone (Intact) 1607.4 pg/mL (18.4-80.1) Other Laboratory Tests 01/17/25 05:56 01/15/25 04:53 Brief Hx & Hospital Course: History of Present Illness (HPI): Callie Mijares is a 44-year-old female with a known past medical history of chronic kidney disease (CKD) and hypertension. She presents with complaints of facial and pedal swelling that have persisted for approximately six months. In addition to the swelling, she reports experiencing shortness of breath and abdominal bloating during the same timeframe. The patient is currently undergoing hemodialysis three times a weekspecifically on Tuesdays, , and Saturdaysthrough the [facility] dialysis group. She mentions that her human resources records clerk has recommended she follow up with her primary care provider (PCP) regarding a potential parathyroidectomy. Course of hospitalization: Patient received hemodialysis yesterday, scheduled for HD this morning. Patient's abdominal pain has improved. UA did reveal bacteria, for which the patient was started on IV Rocephin. Patient had noted elevated PTH 1607. Parathyroid scan negative for any mass/adenoma. Patient will be discharged home this a.m., and to follow up with the [facility] dialysis Center today for possible HD. Patient will be continue antibiotic therapy with ciprofloxacin 500 mg p.o. b.i.d. for additional four days. She was given a copy of her nuclear med test of her thyroid for her to provide to her PCP who she is instructed to follow up with in the next 1-2 weeks. Patient was agreeable with discharge plan. All questions answered. Physical examination General: Alert and Oriented x3. No acute distress. Well-nourished. Eyes: EOMI. Anicteric. HENT: Moist mucous membranes. Lungs: Clear to auscultation bilaterally. No accessory muscle use. Cardiovascular: Regular rate and rhythm. No murmur. No JVD. Abdomen: Soft, non-tender and non-distended. No palpable masses. Extremities: No edema. Non-tender. Skin: No rashes or lesions. Warm. Neurologic: No focal neurological deficits. CN II-XII grossly intact, but not individually tested. Psychiatric: Cooperative. Appropriate mood and affect. Total time spent with patient discussing and formulating plan of care: 35 minutes. This medical document was created using an electronic medical record system with its [employer] dictation system. Although this document has been carefully reviewed, there may still be some phonetic and typographical errors. These areas are purely typographical due to imperfections of the software programs, and do not reflect any compromise in the patient's medical care. Consults/Reason for consult Nephrology: Hemodialysis Condition at Discharge: Fair Final Diagnosis/Problems List Abdominal Pain secondary to UTI -polycystic kidney disease -end-stage renal disease -small pleural effusion -questionable parathyroid mass -accelerated hypertension Discharge Disposition: Home Discharge Instruct/Medications Diet: Renal Activity: No Restrictions, As Tolerated Follow Up/Referral: Follow up with Dialysis center at scheduled chair time. Follow up with PCP in 1-2 weeks Medications: Ciprofloxin 500mg po bid x 4 days Scheduled Amlodipine Besylate (Amlodipine Besylate), 10 MG PO DAILY, (Reported) Calcium Acetate (Phosphate Bin (Calcium Acetate), 667 MG PO TIDWM, (Reported) Ciprofloxacin Hcl (Ciprofloxacin Hcl), 1 TAB PO BID Miscellaneous Medications Cinacalcet HCl (Cinacalcet Hydrochloride), 60 MG PO, (Reported) Ferric Citrate (Auryxia), 210 MG PO, (Reported) Metoclopramide Hcl (Metoclopramide Hcl), 10 MG PO, (Reported) Pantoprazole Sodium Sesquihydr (Pantoprazole Sodium), 40 MG PO, (Reported) 36 Discharge Statement: "Patient was advised to return to the ER or call 911 if any headaches, dizziness, shortness of breath, chest pain, abdominal pain, bleeding, fevers, or worsening of medical condition. Patient was counseled about treatment plan, medications, possible side effects, patientverbalized understanding. All questions were answered to the best of my ability. This discharge took greater then 30 minutes in planning, reviewing documentation, counseling the patient, and discussing with other team members." ASSESSMENT ASSESSMENT Assessment Abdominal Pain secondary to UTI Date of Service: Jan 17, 2025 Billing Provider: JOY DURAN NP Common Visit Codes: 70147-QRO/OBS DISCH DAY >30min JOY DURAN NP Jan 17, 2025 10:43
== END 2025-01-17 09:30 | disposition home or self-care (01) | DRG 194 ==
LOC: ER 23:55 → OVERFLOW 01-15 04:00 → WEST WING 01-15 17:13
PROVIDERS: ADMIT Nurse Practitioner Acute Care; ATTEND Nurse Practitioner Acute Care
DX: I13.2 Hypertensive heart and chronic kidney disease with heart failure and with stage 5 chronic kidney disease, or end stage renal disease (principal); J90 Pleural effusion, not elsewhere classified; N18.6 End stage renal disease; D63.8 Anemia in other chronic diseases classified elsewhere; N25.81 Secondary hyperparathyroidism of renal origin; N30.00 Acute cystitis without hematuria; I50.33 Acute on chronic diastolic (congestive) heart failure; E11.22 Type 2 diabetes mellitus with diabetic chronic kidney disease; R60.1 Generalized edema; K21.9 Gastro-esophageal reflux disease without esophagitis; Z82.49 Family history of ischemic heart disease and other diseases of the circulatory system; Z99.2 Dependence on renal dialysis; Q61.2 Polycystic kidney, adult type; Z79.899 Other long term (current) drug therapy
CPT/HCPCS: 36415; 71046; 74176; 76604; 76700; 78070; 80048; 80053; 81001; 83880; 83970; 84443; 84484; 84702; 85025; 85610; 85730; 90935; 93306; 94640; G0378